=== PATIENT | male | born 2005 | race Caucasian/White ===

== ENCOUNTER 2025-07-20 23:21 | Emergency (ER) | payer OTHER ==
[~2025-07-20] VITALS: Ht 167.6 cm; Wt 88.6 kg
[2025-07-20 23:57] VITALS: TEMP 98.7
[2025-07-21] MEDS: SODIUM CHLORIDE 0.9% 1,000 ML IV ONE (00:26)
[2025-07-21 00:48] VITALS: BP 137/84; PULSE 101; RESP 18; O2SAT 100
== END 2025-07-21 01:04 | disposition hospice, home (50) ==
LOC: EMS 23:23
DX: S09.90XA Unspecified injury of head, initial encounter (principal); F17.210 Nicotine dependence, cigarettes, uncomplicated; W13.8XXA Fall from, out of or through other building or structure, initial encounter; Y93.02 Activity, running; Y92.89 Other specified places as the place of occurrence of the external cause; Y99.8 Other external cause status
CPT/HCPCS: 70450; 72125; 72128; 72131; 99285